=== PATIENT | male | born 1945 | race Hispanic/Latino ===

== ENCOUNTER 2019-03-16 13:53 | Inpatient (IN) | payer OTHER, MEDICARE | END 2019-03-20 15:34 | disposition home or self-care (01) | LOC: EDH 13:53 → 4AH 03-18 17:41 → 4CH 03-18 17:55 → EDHIP 17:10 → 4CH 20:19 | DX: M48.52XA Collapsed vertebra, not elsewhere classified, cervical region, initial encounter for fracture (principal); S00.03XA Contusion of scalp, initial encounter; R55 Syncope and collapse; S00.10XA Contusion of unspecified eyelid and periocular area, initial encounter ==